=== PATIENT | male | born 1990 | race Caucasian/White ===

== ENCOUNTER 2017-10-16 10:18 | Emergency (ER) | payer OTHER ==
[2017-10-16] MEDS ORDERED: Tetan/Diph/Pertus SYR(Tdap)* 0.5 ML SYR(BOOSTRIX) use SYR IM ONE (11:20)
[2017-10-16] MEDS ORDERED: Lidocaine 1% INJ* 10 MG/ML 30 ML SDV INJ ONE (11:21)
[2017-10-16] MEDS ORDERED: Lidocaine 1%* 5 ML VIAL INJ ONE (11:27)
[2017-10-16] MEDS ORDERED: Lidocaine 1%* 5 ML VIAL ONE (11:28)
[2017-10-16 12:32] VITALS: BP 135/74
--- NOTE | 2017-10-16 13:04 | ED ---
Skin Complaint - HPI Summary HPI Summary: Patient is a 27-year-old male who presents emergency department for laceration to his left hand that occurred just prior to arrival. 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 He is unaware of his last tetanus immunization. He has no past medical history. Touching the affected area makes symptoms worse. Rest makes symptoms better. Symptoms are mild in severity. - History of Current Complaint Chief Complaint: EDLacSutureRecheck Time Seen by Provider: 10/16/17 11:16 Stated Complaint: LT HAND LAC Hx Obtained From: Patient Pain Intensity: 1 Pain Scale Used: 0-10 Numeric - Allergy/Home Medications Allergies/Adverse Reactions: Allergies Allergy/AdvReac Type Severity Reaction Status Date / Time Adhesive Tape Allergy Rash Verified 10/16/17 11:35 Latex, Natural Rubber Allergy Rash And Verified 10/16/17 10:26 Itching PMH/Surg Hx/FS Hx/Imm Hx Previously Healthy: Yes Endocrine/Hematology History: Denies: Hx Diabetes, Hx Thyroid Disease Cardiovascular History: Denies: Hx Hypertension Respiratory History: Reports: Hx Asthma - as a child Denies: Hx Chronic Obstructive Pulmonary Disease (COPD) GI History: Denies: Hx Ulcer Infectious Disease History: No Infectious Disease History: Denies: Hx Hepatitis, Hx Human Immunodeficiency Virus (HIV), Traveled Outside the [place] in Last 30 Days - Social History Occupation: Employed Full-time Lives: Alone Alcohol Use: Occasionally Substance Use Type: Reports: Marijuana Smoking Status (MU): Never Smoked Tobacco Review of Systems Positive: Other Positive: Other - laceration left hand All Other Systems Reviewed And Are Negative: Yes Physical Exam Triage Information Reviewed: Yes Vital Signs On Initial Exam: Initial Vitals Temp Pulse Resp BP Pulse Ox 98.8 F 80 15 122/83 98 10/16/17 10:22 10/16/17 10:22 10/16/17 10:22 10/16/17 10:22 10/16/17 10:22 Vital Signs Reviewed: Yes Appearance: Positive: Well-Appearing - Patient sitting up in bed in no acute distress. Pleasant. Skin: Positive: Warm, Dry Head/Face: Positive: Normal Head/Face Inspection Eyes: Positive: Normal, KRISTIN Neck: Positive: Supple Musculoskeletal: Positive: Other - 3 cm, linear laceration noted to the palmar aspect of the left hand just distal to the thenar eminence. Flexor tendons are all intact. Laceration into the adipose tissue, no muscle exposed. Procedures - Laceration/Wound Repair 1 Location: upper extremity Description: Linear Anesthesia: Local, 1.0%, Lido Length, Depth and Shape: 3cm linear Betadine Prep?: No - hibiclens Laceration/Wound Explored: clean Closure: Single Layer Suture Type: Nylon Number of Sutures: 5 Layer Closure?: No Sterile Dressing Applied?: Yes Diagnostics - Vital Signs Vital Signs Temp Pulse Resp BP Pulse Ox 10/16/17 12:31 98.6 F 74 17 135/74 100 10/16/17 10:22 98.8 F 80 15 122/83 98 - Laboratory Lab Statement: Any lab studies that have been ordered have been reviewed, and results considered in the medical decision making process. Course/Dx - Course Course Of Treatment: Patient presenting to the ER for simple laceration to his left hand. Tetanus was updated. 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 Will prophylactically covered with Keflex. Wound was extensively irrigated and cleaned. It was closed as above. Suture removal in 7-10 days. Keep the wound clean and dry. To return to the ER for redness, swelling or drainage from wound site. Patient understands and agrees with plan. - Diagnoses Provider Diagnoses: Hand laceration Discharge - Sign-Out/Discharge Documenting (check all that apply): Discharge/Admit/Transfer - Discharge Plan Condition: Good Disposition: HOME Prescriptions: Cephalexin CAP* [Keflex CAP*] 500 mg PO BID #20 cap Patient Education Materials: Care For Your Stitches (ED) Referrals: No Primary Care Phys,NOPCP [Primary Care Provider] - [facility] [place] [facility] [Outside] Additional Instructions: Suture removal in 7-10 days Keep wound clean and dry Antibiotic as directed Return to ER for redness, swelling or drainage from suture site - Billing Disposition and Condition Condition: GOOD Disposition: HOME
== END 2017-10-16 12:31 | disposition home or self-care (01) ==
LOC: ED 10:18
DX: S61.412A Laceration without foreign body of left hand, initial encounter (principal); W26.0XXA Contact with knife, initial encounter; Y93.G1 Activity, food preparation and clean up; Y92.79 Other farm location as the place of occurrence of the external cause; Y99.0 Civilian activity done for income or pay; Z23 Encounter for immunization; J45.909 Unspecified asthma, uncomplicated; Z91.040 Latex allergy status; Z91.048 Other nonmedicinal substance allergy status
CPT/HCPCS: 12002; 90471; 90715; 99282

== ENCOUNTER 2018-05-12 14:41 | Emergency (ER) | payer OTHER ==
[2018-05-12 14:56] VITALS: BP 128/77
--- NOTE | 2018-05-12 17:58 | UC ---
Throat Pain/Nasal Kenneth HPI - HPI Summary HPI Summary: COMPLAINS OF 3 WEEKS OF SORE THROAT THAT IS GETTING WORSE. DENIES PAIN WITH SWALLOWING. NO NAUSEA/VOMITING OR EAR PAIN. NO FEVER. HAS A VERY MILD COUGH BUT STATES HE IS BRINGING UP BLOOD TINGED SPUTUM. ALSO REPORTS A MIGRAINE CURRENTLY BUT STATES THIS IS NOT UNUSUAL FOR HIM AND IS NOT WHAT BROUGHT HIM IN TO BE EVALUATED. - History of Current Complaint Chief Complaint: UCRespiratory Stated Complaint: SORE THROAT Time Seen by Provider: 05/12/18 16:45 Hx Obtained From: Patient Onset/Duration: Gradual Onset, Lasting Weeks, Still Present Severity: Mild Pain Intensity: 2 Pain Scale Used: 0-10 Numeric - Allergies/Home Medications Allergies/Adverse Reactions: Allergies Allergy/AdvReac Type Severity Reaction Status Date / Time Adhesive Tape Allergy Rash Verified 05/12/18 14:56 Latex, Natural Rubber Allergy Rash And Verified 05/12/18 14:56 Itching PMH/Surg Hx/FS Hx/Imm Hx Respiratory History: Asthma Neurological History: Migraine - Surgical History Surgical History: None - Family History Known Family History: Positive: Non-Contributory - Social History Alcohol Use: Weekly Substance Use Type: Marijuana Substance Use Comment - Amount & Last Used: 2 times a week Smoking Status (MU): Never Smoked Tobacco Review of Systems All Other Systems Reviewed And Are Negative: Yes Constitutional: Positive: Negative ENT: Positive: Sore Throat Respiratory: Positive: Cough, Other - BLOOD TINGED SPUTUM Cardiovascular: Positive: Negative Neurological: Positive: Headache Physical Exam Triage Information Reviewed: Yes Appearance: Well-Appearing, No Pain Distress, Well-Nourished Vital Signs: Initial Vital Signs Temp 98.6 F 05/12/18 14:52 Pulse 69 05/12/18 14:52 Resp 18 05/12/18 14:52 BP 128/77 05/12/18 14:52 Pulse Ox 100 05/12/18 14:52 Laboratory Tests 05/12/18 17:02 Group A Strep Rapid Negative Vital Signs Reviewed: Yes Eyes: Positive: Conjunctiva Clear ENT: Positive: Hearing grossly normal, Pharynx normal, TMs normal. Negative: Tonsillar swelling, Tonsillar exudate Neck: Positive: Supple, Nontender, No Lymphadenopathy Respiratory Exam: Normal Cardiovascular Exam: Normal Abdomen Description: Positive: Soft Musculoskeletal: Positive: No Edema Neurological: Positive: Alert Psychological: Positive: Age Appropriate Behavior Skin: Negative: Rashes Throat Pain/Nasal Course/Dx - Differential Dx/Diagnosis Provider Diagnosis: Pharyngitis Discharge - Sign-Out/Discharge Documenting (check all that apply): Patient Departure All imaging exams completed and their final reports reviewed: No Studies - Discharge Plan Condition: Stable Disposition: HOME Prescriptions: Amoxicillin PO (*) [Amoxicillin 500 MG CAP*] 1,000 mg PO DAILY #20 cap Patient Education Materials: Pharyngitis (ED) Referrals: [facility] [Outside] - 1 Week Additional Instructions: STREP TEST NEGATIVE. YOUR SYMPTOMS MAY BE VIRALLY MEDIATED BUT GIVEN THE LENGTH OF TIME YOU HAVE BEEN ILL WE WILL COVER YOU WITH ANTIBIOTICS. IF YOU START THE MEDICINE BE SURE TO TAKE IT FOR THE FULL COURSE. REST, HYDRATE, OTC MEDS NEEDED. SEEK FOLLOW-UP WITH YOUR PCP IF YOU ARE NOT IMPROVING OVER THE NEXT 1-2 WEEKS. CHEST X-RAY TODAY UNREMARKABLE. THE BLOOD IN YOUR SPUTUM MAY SIMPLY BE DUE TO IRRITATION AND INFLAMMATION. THIS SHOULD RESOLVE YOUR ILLNESS IMPROVES. IF IT IS PERSISTENT YOU'LL NEED FOLLOW-UP FOR FURTHER EVALUATION. GO TO THE ED WITHOUT FAIL IF YOU START HAVING DIZZINESS, WEAKNESS, FEEL THAT YOU MAY PASS OUT OR ANY OTHER CONCERNING SYMPTOMS DEVELOP. CALL THE NUMBER BELOW FOR ASSISTANCE IN ESTABLISHING WITH A PCP An additional resource available to assist in finding the appropriate physician for your health care needs is the [facility] ([facility]). You may contact them by calling [phone]. - Billing Disposition and Condition Condition: STABLE Disposition: Home
== END 2018-05-12 18:05 | disposition home or self-care (01) ==
LOC: UCEAST 14:41
DX: J02.9 Acute pharyngitis, unspecified (principal); R04.2 Hemoptysis; Z91.040 Latex allergy status; Z91.048 Other nonmedicinal substance allergy status
CPT/HCPCS: 71046; 87651; 99212; G0463